=== PATIENT | male | born 1940 | race Caucasian/White ===

== ENCOUNTER → 2017-09-19 | Outpatient (CLI) | payer MEDICARE, BC ==
[~2017-09-19] MED LIST: ACYC-1 PO; ACYC200O PO; ALLO-119 PO; ALLO100T70 PO; ARGI500C9 PO; ARGI500T PO; ASCO-191 PO; ATOR10TA24 PO; ATOR20TA65 PO; BILB80CA2 PO; CALC600T63 PO; CHOL200021 PO; CIP500 PO; CYAN250013; DEXL60CA6 PO; DIPH-464 PO; FLUT16SP19; GARL10005 PO; GLUC1TAB35 PO; IRBE1TAB10 PO; LUTE6CAP11 PO; LYCO10CA2 PO; MAGN400C PO; MELA1TAB5 SL; OLM20 PO; OMEG-96 PO; OMEP-218 PO; OMEP40CA48 PO; ORPH1TAB PO; PAN20 PO; PANT40SU3 PO; POTA99TA6 PO; PRAS25CA7 PO; PRED15SO5 PO; RABE20TA33 PO; RANI-324 PO; TAM4 PO; UBID100C9 PO; VITA-175 PO; [UNRECOGNIZED DRUG - CODE] PO
--- NOTE | 2017-09-19 16:45 | RADIOLOGY IMAGING REPORT ---
FACILITY: [facility] PATIENT NAME: Ulysses Lizarraga : 1940 MR: [id number] V: [id number] EXAM DATE: ORDERING PHYSICIAN: JOI BUSTAMANTE TECHNOLOGIST: Location: [facility] Patient: Ulysses Lizarraga : 1940 Visit/Account:[id number] Date of Sevice: 09/19/2017 Chest 2 views: HISTORY: Sarcoidosis, no chest complaints. Previous smoker 30 years ago. COMPARISON: 11/03/2016 FINDINGS: Frontal and lateral chest: Cardiomediastinal silhouette is within normal limits. There is mild prominence interstitial markings, similar to previous. There is no focal infiltrate, pleural ef fusion or pneumothorax. Pulmonary vasculature is normal. Urinary of airspace opacity seen on the pr ior study has decreased in conspicuity. Degenerative changes are present in the thoracic spine. IMPRESSION: No evidence of acute cardiopulmonary abnormality. Mild prominence of the interstitial ma rkings may be secondary to the patient's smoking history and history of sarcoidosis. Report Dictated By: Prerna Oliva MD at 09/19/2017 4:38 PM Report E-Signed By: Prerna Oliva MD at 09/19/2017 4:41 PM WSN:[email or web address]
--- NOTE | 2017-09-19 17:19 | RADIOLOGY IMAGING REPORT ---
FACILITY: [facility] - [place], [place] PATIENT NAME: Ulysses Lizarraga : 1940 MR: [id number] V: [id number] EXAM DATE: ORDERING PHYSICIAN: JOI BUSTAMANTE TECHNOLOGIST: Location: [facility] [place] Patient: Ulysses Lizarraga : 1940 Visit/Account:[id number] Date of Sevice: 09/19/2017 Carotid artery Doppler duplex ultrasound scan. HISTORY: Amaurosis fugax. COMPARISON: 02/10/2016. A color flow Doppler duplex ultrasound scan with spectral analysis was performed on the carotid and v ertebral arteries bilaterally. Measurement of carotid stenosis is based on velocity parameters that correlate the residual internal carotid diameter with [place] Symptomatic Carotid Endarterecto my Trial (NASCET)- based stenosis levels. Right carotid peak systolic velocities are as follows: Superior right ICA - 104 cm/sec. Mid right ICA - 86 cm/sec. Proximal right ICA - 56 cm/sec. Right carotid bulb - 87 cm/sec. Superior right CCA - 89 cm/sec. Mid right CCA- 105 cm/sec. Inferior right CCA- 180 cm/sec. Proximal right ECA- 120 cm/sec. Mid right vertebral- 41 cm/sec. Right ICA/CCA ratio- 0.8 ( normal < 1.5 ). Antegrade right vertebral artery flow- YES. Left carotid peak systolic velocities are as follows: Superior left ICA - 112 cm/sec. Mid left ICA- 88 cm/sec. Proximal left ICA- 100 cm/sec. Left carotid bulb- 92 cm/sec. Superior left CCA- 92 cm/sec. Mid left CCA- 124 cm/sec. Inferior left CCA- 192 cm/sec. Proximal left ECA- 105 cm/sec. Mid left vertebral- 66 cm/sec. Left ICA/CCA ratio- 0.7 ( normal < 1.5). Antegrade left vertebral artery flow- YES. Mild plaque is present in the carotid bulbs and proximal internal carotid arteries bilaterally. Veloc ities are mildly elevated in the common carotid arteries bilaterally however no significant focal peter noses are identified by visual criteria. Carotid velocities are similar compared to previous. IMPRESSION: Mild bilateral carotid atherosclerosis without evidence of hemodynamically significant focal stenosis . Report Dictated By: Dallas Tellez MD at 09/19/2017 5:12 PM Report E-Signed By: Dallas Tellez MD at 09/19/2017 5:16 PM WSN:[id number]
== END ==
LOC: RAD 15:21
PROVIDERS: ATTEND Technician/Technologist Ophthalmic
DX: I65.23 Occlusion and stenosis of bilateral carotid arteries (principal)
CPT/HCPCS: 71046; 93880

== ENCOUNTER → 2019-05-02 | Outpatient (CLI) | payer MEDICARE, BC ==
[~2019-05-02] MED LIST changes: +ATOR10TA65 PO; +DICL100G39 TOP; +GUAI400T18 PO; +IRBE150T7 PO; -RANI-324 PO; +RANI-54 PO; +SODI30SP6 NS; +TRAM-420 PO
--- NOTE | 2019-05-02 16:29 | EKG ---
FACILITY: [facility] - [place] PATIENT NAME: DEEPALI ALTAMIRANO : [id number] MR: [id number] V: [id number] EXAM DATE: ORDERING PHYSICIAN: AMY MENSAH TECHNOLOGIST: Test Reason : EKG Blood Pressure : / mmHG Vent. Rate : 063 BPM Atrial Rate : 063 BPM P-R Int : 184 ms QRS Dur : 090 ms QT Int : 386 ms P-R-T Axes : 059 075 039 degrees QTc Int : 395 ms Normal sinus rhythm Normal ECG When compared with ECG of 24-JUL-2017 11:36, No significant change was found Referred By: Confirmed By:
== END ==
LOC: RESP 10:26
PROVIDERS: ATTEND Family Medicine
DX: Z01.818 Encounter for other preprocedural examination (principal); I10 Essential (primary) hypertension
CPT/HCPCS: 93005